=== PATIENT | male | born 1975 | race Caucasian/White ===

== ENCOUNTER 2022-01-22 05:37 | Emergency (ER) | payer OTHER ==
[~2022-01-22 05:37] MED LIST: CIPRO500 MG PO; METRONIDAZOLE500 MG PO; ZOFRAN8 MG PO
[2022-01-22 06:12] LABS: BILIRUBIN NEGATIVE (NEGATIVE); BLOOD NEGATIVE Ery/uL (NEGATIVE); CLARITY CLEAR (CLEAR); COLOR YELLOW (YELLOW); GLUCOSE (U) NORMAL (NORMAL); LEUKOCYTES NEGATIVE Leu/uL (NEGATIVE); NITRITE NEGATIVE (NEGATIVE); PROTEIN NEGATIVE (NEGATIVE); UROBILINOGEN 0.2 mg/dL (0.2-1.0)
[2022-01-22 06:53] LABS: BASOPHIL 0.3 % (0-2); EOSINOPHIL 1.3 % (0-5); HCT 41.1 % (42.0-52.0); HGB 13.7 g/dl (13.2-18.0); LYMPHOCYTE 16.5 % (15-48); MCH 29.8 pg (25.0-31.0); MCHC 33.3 g/dL (32.0-36.0); MCV 89.3 fL (78.0-100.0); MONOCYTE 8.3 % (0-12); MPV 10.8 fL (6.0-9.5); NEUTROPHIL 73.3 % (41-80); NRBC 0; PLT 210 K/uL (150-400); RDW 12.7 % (11.5-14.0); WBC 13.8 K/uL (4.0-10.5)
[2022-01-22 07:11] LABS: ALBUMIN 3.9 g/dL (3.4-5.0); BILIRUBIN - TOTAL 0.5 mg/dL (0.2-1.0); BUN/CREAT RATIO (CALC) 16.9 RATIO; CREATININE 0.77 mg/dL (0.67-1.17); GLOBULIN (CALCULATION) 3.2 g/dL; POTASSIUM 3.9 mmol/L (3.5-5.1); TOTAL PROTEIN 7.1 g/dL (6.4-8.2)
[2022-01-22] MEDS ORDERED: NORCO 5-325 TA1 EACH PO (08:50)
[2022-01-22] MEDS ORDERED: COLACE100 MG PO (08:50)
[2022-01-22] MEDS ORDERED: ONDANSETRON ODT4 MG PO (08:50)
[2022-01-22] MEDS ORDERED: AMOX TR-K CLV1 EAC4 PO (08:50)
== END 2022-01-22 09:52 | disposition home or self-care (01) ==
LOC: FER 05:37
PROVIDERS: Internal Medicine
DX: K57.32 Diverticulitis of large intestine without perforation or abscess without bleeding (principal)
CPT/HCPCS: 36415; 80053; 81003; 83690; 84145; 85025; J1170; J1885; J2405; J2543